=== PATIENT | female | born 1960 | race Caucasian/White ===

== ENCOUNTER 2018-02-24 10:58 | Emergency (ER) | payer OTHER ==
[2018-02-24] MEDS ORDERED: Lidocaine 1% 20 ML MDV INJECT ONE (11:44)
[2018-02-24] MEDS ORDERED: Diphtheria,Pertussis(Acell),Tetanus Vaccine 0.5 ML SDV IM ONE (11:44)
[2018-02-24] MEDS ORDERED: Bacitracin Oint 1 GM U/D Packet TOP ONE (11:44)
--- NOTE | 2018-02-24 11:47 | EDM.PDOC ---
ED HPI GENERAL MEDICAL PROBLEM - General Chief Complaint: Laceration Stated Complaint: CUT RIGHT LEG WHILE USING A SAW Time Seen by Provider: 02/24/18 11:30 Source of Information: Reports: Patient History Limitations: Reports: No Limitations - History of Present Illness INITIAL COMMENTS - FREE TEXT/NARRATIVE: 57-year-old male with a laceration to his right leg. A sliding miter saw slipped back and struck the inner aspect of his distal upper leg just above the knee and he sustained a laceration. Soft tissue and subcutaneous tissue is involved but no deep structures, no difficulties with walking or distal paresthesias. He is due for tetanus vaccination. Onset: Sudden Duration: Hour(s): (Within the last 2 hours) Location: Reports: Lower Extremity, Right Severity: Mild Associated Symptoms: Reports: No Other Symptoms - Related Data Allergies Allergy/AdvReac Type Severity Reaction Status Date / Time acetaminophen [From Vicodin] Allergy Diaphoresis Verified 02/24/18 11:21 hydrocodone [From Vicodin] Allergy Diaphoresis Verified 02/24/18 11:21 hydromorphone [From Dilaudid] Allergy Shaking Verified 02/24/18 11:21 Home Meds: Home Meds NK [No Known Home Meds] 02/24/18 [History] Naproxen 02/24/18 [History] SUMAtriptan Succinate [Imitrex] 02/24/18 [History] Past Medical History Neurological History: Reports: Migraines - Past Surgical History GI Surgical History: Reports: Appendectomy, Cholecystectomy Musculoskeletal Surgical History: Reports: Other (See Below) Other Musculoskeletal Surgeries/Procedures:: spinal fussion Social & Family History - Tobacco Use Smoking Status *Q: Never Smoker ED ROS GENERAL - Review of Systems Review Of Systems: See Below Constitutional: Denies: Fever, Chills Respiratory: Denies: Shortness of Breath Cardiovascular: Denies: Chest Pain GI/Abdominal: Denies: Nausea, Vomiting Neurological: Reports: No Symptoms ED EXAM, SKIN/RASH Exam: See Below Exam Limited By: No Limitations General Appearance: Alert, No Apparent Distress Respiratory/Chest: No Respiratory Distress Extremities: Other (Exam is limited to the right lower leg. Patient has a 4 cm straight laceration into the subcutaneous tissue on the distal aspect of the upper leg just proximal to the knee and somewhat medial. No difficulties with ambulation, no distal symptoms. On exploration the wound was found to be fairly deep and penetrated the fascia with a small amount of muscle injury.) Course - Vital Signs Last Recorded V/S: Last Vital Signs Temp 98.7 F 02/24/18 11:26 Pulse 92 02/24/18 11:26 Resp 13 02/24/18 11:26 BP 145/91 H 02/24/18 11:26 Pulse Ox 96 02/24/18 11:26 - Orders/Labs/Meds Orders: Active Orders 24 hr Category Date Time Status Vaccines to be Administered [RC] PER UNIT ROUTINE Care 02/24/18 11:44 Active Meds: Medications Discontinued Medications Generic Name Dose Route Start Last Admin Trade Name Roldanq PRN Reason Stop Dose Admin Bacitracin 1 dose 02/24/18 11:44 02/24/18 11:52 Bacitracin Oint 1 Gm TOP 02/24/18 11:45 1 dose ONETIME ONE Administration Diphtheria/Tetanus/Acell Pertussis 0.5 ml 02/24/18 11:44 02/24/18 11:52 Adacel IM 02/24/18 11:45 0.5 ml .ONCE ONE Administration Lidocaine HCl 20 ml 02/24/18 11:44 02/24/18 11:52 Xylocaine 1% INJECT 02/24/18 11:45 20 ml ONETIME ONE Administration - Re-Assessments/Exams Free Text/Narrative Re-Assessment/Exam: 02/24/18 11:47 Patient is due for a tetanus booster and this was prepared. 02/24/18 12:21 The wound was anesthetized with 1% lidocaine, washed thoroughly with Hibiclens and saline. 4 5-0 Vicryl sutures were used to close the overlying muscle fascia and subcutaneous tissue, and 9 mattress sutures of 4-0 Ethilon were used to close the external portion of the laceration. Topical bacitracin was applied and the patient was put on cephalexin 500 mg twice daily for 10 days and the sutures can be removed in 10 days. Activity as tolerated. Departure - Departure Time of Disposition: 12:39 Disposition: Home, Self-Care 01 Condition: Good Clinical Impression: Laceration of leg Qualifiers: Encounter type: initial encounter Laterality: right Qualified Code(s): S81.811A - Laceration without foreign body, right lower leg, initial encounter - Discharge Information Instructions: Laceration Care, Adult Referrals: PCP,None [Primary Care Provider] - Forms: ED Department Discharge Care Plan Goals: Keep the wound covered and clean while healing, sutures can be removed in 10 days, next Saturday. Take antibiotic twice a day until gone, and return sooner if concerns of infection or not healing satisfactorily. - My Orders Last 24 Hours: My Active Orders 02/24/18 11:44 Vaccines to be Administered [RC] PER UNIT ROUTINE - Assessment/Plan Last 24 Hours: My Active Orders 02/24/18 11:44 Vaccines to be Administered [RC] PER UNIT ROUTINE
== END 2018-02-24 12:39 | disposition home or self-care (01) ==
LOC: JP.ED 10:58
DX: S81.811A Laceration without foreign body, right lower leg, initial encounter (principal); Z23 Encounter for immunization; Z88.6 Allergy status to analgesic agent; Z88.5 Allergy status to narcotic agent; W27.0XXA Contact with workbench tool, initial encounter
CPT/HCPCS: 12032; 90471; 90715; 99284-25

== ENCOUNTER 2025-06-04 07:29 | Day surgery (SDC) | payer MEDICARE ==
[2025-06-04] MEDS ORDERED: Midazolam 1 MG/ML 2 ML SDV ONE (08:00)
[2025-06-04] MEDS ORDERED: Propofol 200 MG/20 ML SDV ONE (08:00)
[2025-06-04] MEDS ORDERED: fentaNYL 50 MCG/ML SDV ONE (08:00)
[2025-06-04] MEDS: Lactated Ringers 1,000 ML IV SCH (08:30)
== END 2025-06-04 11:13 | disposition home or self-care (01) ==
LOC: JP.SDS 07:29 → MERGE 07:29 → JP.SDS 11:13
PROVIDERS: ATTEND Surgery
DX: Z12.11 Encounter for screening for malignant neoplasm of colon (principal); D12.2 Benign neoplasm of ascending colon; D12.5 Benign neoplasm of sigmoid colon; K57.30 Diverticulosis of large intestine without perforation or abscess without bleeding; K21.9 Gastro-esophageal reflux disease without esophagitis; Z88.6 Allergy status to analgesic agent; Z86.0100 Personal history of colon polyps, unspecified
CPT/HCPCS: 00811; 45380; 45385; 88305; J2250; J2704; J3010; J7120